=== PATIENT | male | born 2000 | race African-American/Black ===

== ENCOUNTER 2018-03-03 13:47 | Inpatient (IN) | payer OTHER ==
[~2018-03-03] VITALS: Ht 177.8 cm; Wt 69.0 kg
[~2018-03-03 13:47] MED LIST: ACETAMINOPHEN-1 EAC3 PO; AUGMENTIN500 MG PO; MOTRIN600 MG PO; NORCO 5/3251 TABLET PO; TENORMIN25 MG PO; ULTRAM50 MG PO
[2018-03-03 14:03] LABS: BASOPHIL (%) 1.1 % (0-1); BASOPHIL COUNT 0.1 K/uL (0-0.1); EOSINOPHIL (%) 1.7 % (0-5); EOSINOPHIL COUNT 0.1 K/uL (0-0.3); HEMATOCRIT 40.1 % (38.0-50.0); HEMOGLOBIN 13.5 G/DL (12.5-16.6); IMMATURE GRANULOCYTE (%) 0.2 % (0.0-0.7); LYMPHOCYTE (%) 58.2 % (15-42); LYMPHOCYTE COUNT 3.1 K/uL (1.0-2.8); MCH 29.1 PG (29.0-34.0); MCHC 33.7 G/DL (30.0-36.0); MCV 86.4 FL (86-99); MONOCYTE (%) 6.3 % (3-12); MONOCYTE COUNT 0.3 K/uL (0-0.8); NEUTROPHIL (%) 32.5 % (45-76); NEUTROPHIL COUNT 1.7 K/uL (1.8-6.4); PLATELET COUNT 293 K/uL (156-360); RED BLOOD COUNT 4.64 M/uL (4.00-5.50); WHITE BLOOD COUNT 5.3 K/uL (4.1-10.2)
[2018-03-03 14:16] LABS: AMYLASE 86 IU/L (1-118); CHLORIDE 103 mEq/L (99-109); POTASSIUM 4.1 mEq/L (3.7-5.4); SODIUM 139 mEq/L (136-147)
[2018-03-03 14:18] LABS: GLUCOSE 201 mg/dL (70-99)
[2018-03-03 14:21] LABS: SERUM ETHYL ALCOHOL < 10 mg/dL
[2018-03-03 14:22] LABS: CREATININE 1.3 mg/dL (0.6-1.3); GFR ESTIMATE (CALCULATED) > 59 mL/min/ (58.99-99999)
[2018-03-03 14:23] LABS: UREA NITROGEN (BUN) 13 mg/dL (9-23)
[2018-03-03 14:25] LABS: LIPASE 23 U/L (1.0-51.0)
[2018-03-03 18:29] VITALS: BP 129/62
[2018-03-03 20:02] VITALS: BP 138/73
[2018-03-04] VITALS (7 sets, daily range): BP systolic 98–144; BP diastolic 46–84
[2018-03-04 07:26] LABS: HEMATOCRIT 20.1 % (38.0-50.0); HEMOGLOBIN 6.8 G/DL (12.5-16.6); MCH 28.6 PG (29.0-34.0); MCHC 33.8 G/DL (30.0-36.0); MCV 84.5 FL (86-99); RBC DIS.WIDTH-CV 11.9 % (11.8-14.6); RBC DIS.WIDTH-SD 36.9 % (39-53); RED BLOOD COUNT 2.38 M/uL (4.00-5.50); WHITE BLOOD COUNT 8.9 K/uL (4.1-10.2)
[2018-03-04 07:42] LABS: PLAT.SUFFICIENCY ADEQUATE
[2018-03-04 07:43] LABS: PLATELET COUNT 163 K/uL (156-360)
[2018-03-04 16:12] LABS: HEMATOCRIT 21.2 % (38.0-50.0); MCV 85.5 FL (86-99)
[2018-03-05 06:14] LABS: HEMATOCRIT 21.6 % (38.0-50.0); HEMOGLOBIN 7.1 G/DL (12.5-16.6); MCH 28.1 PG (29.0-34.0); MCHC 32.9 G/DL (30.0-36.0); MCV 85.4 FL (86-99); PLATELET COUNT 193 K/uL (156-360); RBC DIS.WIDTH-SD 38.1 % (39-53); RED BLOOD COUNT 2.53 M/uL (4.00-5.50); WHITE BLOOD COUNT 10.3 K/uL (4.1-10.2)
[2018-03-05 07:50] VITALS: BP 92/43
[2018-03-05] MEDS ORDERED: IBUPROFEN400 MG PO (12:15)
[2018-03-05] MEDS ORDERED: Tylenol Extra Streng PO (12:15)
== END 2018-03-05 13:14 | disposition home or self-care (01) | DRG 982 ==
LOC: TRA 13:47 → SDC 15:27 → TRA 15:27 → ENRESERV 16:45 → 2SOUTH 16:47 → 3EAST 16:47 → 2SOUTH 16:47 → ENRESERV 16:48 → 3EAST 18:04
PROVIDERS: Emergency Medicine Emergency Medical Services; Surgery
PROC: 04LY0CZ Occlusion of Lower Artery with Extraluminal Device, Open Approach (ICD-10-PCS; principal; 2018-03-03)
DX: S31.821A Laceration without foreign body of left buttock, initial encounter (principal); D62 Acute posthemorrhagic anemia; X99.9XXA Assault by unspecified sharp object, initial encounter; F12.90 Cannabis use, unspecified, uncomplicated
CPT/HCPCS: 71045; 80048; 81003; 82150; 83605; 83690; 85014; 85018; 85025; 85027; 86850; 86900; 86901; 86920; 99281; 99285; G0378; G0480; J0690; J2405; J2710; J3010; J7120; J7643

== ENCOUNTER 2018-03-08 17:40 | Emergency (ER) | payer OTHER ==
[~2018-03-08] VITALS: Ht 175.3 cm; Wt 61.6 kg
[~2018-03-08 17:40] MED LIST changes: +IBUPROFEN400 MG PO; +Tylenol Extra Streng PO
[2018-03-08 20:14] LABS: HEMATOCRIT 23.8 % (38.0-50.0); HEMOGLOBIN 8.1 G/DL (12.5-16.6); MCH 30.1 PG (29.0-34.0); MCV 88.5 FL (86-99); RBC DIS.WIDTH-CV 12.8 % (11.8-14.6); RED BLOOD COUNT 2.69 M/uL (4.00-5.50); WHITE BLOOD COUNT 5.7 K/uL (4.1-10.2)
[2018-03-08 20:22] LABS: PLATELET COUNT 332 K/uL (156-360)
[2018-03-08 20:23] LABS: ALBUMIN 4.1 g/dL (3.2-4.8)
[2018-03-08 20:24] LABS: CHLORIDE 105 mEq/L (99-109); SODIUM 143 mEq/L (136-147)
[2018-03-08 20:26] LABS: GLUCOSE 90 mg/dL (70-99); TOTAL PROTEIN 6.9 g/dL (6.4-8.3)
[2018-03-08 20:28] LABS: TOTAL BILIRUBIN 0.3 mg/dL (0.0-1.0)
[2018-03-08 20:29] LABS: ALKALINE PHOSPHATASE 59 IU/L (3-129)
[2018-03-08 20:30] LABS: CREATININE 0.9 mg/dL (0.6-1.3); GFR ESTIMATE (CALCULATED) > 59 mL/min/ (58.99-99999)
[2018-03-08 20:31] LABS: AST (GOT) 21 IU/L (2-34); UREA NITROGEN (BUN) 13 mg/dL (9-23)
[2018-03-08 20:32] LABS: ALT (GPT) 22 IU/L (3-49)
[2018-03-08 22:33] VITALS: BP 124/82
== END 2018-03-08 22:36 | disposition home or self-care (01) ==
LOC: EME 17:40
PROVIDERS: Physician Assistant
DX: R20.2 Paresthesia of skin (principal); D64.9 Anemia, unspecified; Z87.891 Personal history of nicotine dependence; Z86.79 Personal history of other diseases of the circulatory system
CPT/HCPCS: 74177; 80053; 83874 90; 85027; 99281; 99283; J7030

== ENCOUNTER 2018-03-20 22:45 | Emergency (ER) | payer OTHER ==
[~2018-03-20] VITALS: Ht 175.3 cm; Wt 60.6 kg
[2018-03-21] MEDS ORDERED: MOTRIN800 MG PO (00:22)
[2018-03-21] MEDS ORDERED: INDOCIN50 MG PO (00:36)
[2018-03-21 00:43] VITALS: BP 123/60
== END 2018-03-21 00:43 | disposition home or self-care (01) ==
LOC: EME 22:45
DX: R20.2 Paresthesia of skin (principal); G89.18 Other acute postprocedural pain; Z87.891 Personal history of nicotine dependence
CPT/HCPCS: 99281; 99284; J1100